=== PATIENT | male | born 1940 | race Caucasian/White ===

== ENCOUNTER 2021-09-14 19:39 | Emergency (ER) | payer MEDICARE, MEDICAID ==
[~2021-09-14] VITALS: Ht 175.3 cm; Wt 50.0 kg
[2021-09-15 06:07] LABS: HEMATOCRIT 45.2 % (42.0-52.0); HEMOGLOBIN 15.2 g/dL (14.0-18.0); MEAN CORPUSCULAR HEMOGLOBIN 30.9 pg (28.0-32.0); MEAN CORPUSCULAR VOLUME 92.1 fL (80.0-94.0); PLATELET 221 x1000/uL (130-400); RED BLOOD CELL COUNT 4.91 mill/uL (4.7-6.1); RED CELL DISTRIBUTION WIDTH 14.8 % (11.6-14.6)
[2021-09-15 06:16] LABS: CHLORIDE 99 mEq/L (98-107)
[2021-09-15 08:52] VITALS: BP 95/68
== END 2021-09-15 09:32 ==
LOC: ER 19:39
DX: R62.7 Adult failure to thrive (principal); F03.90 Unspecified dementia, unspecified severity, without behavioral disturbance, psychotic disturbance, mood disturbance, and anxiety; F20.9 Schizophrenia, unspecified; Z68.1 Body mass index [BMI] 19.9 or less, adult; Z86.73 Personal history of transient ischemic attack (TIA), and cerebral infarction without residual deficits; Z88.8 Allergy status to other drugs, medicaments and biological substances
CPT/HCPCS: 36415; 80053; 85027; 99283